=== PATIENT | male | born 1965 | race Two or more races ===

== ENCOUNTER 2024-05-24 08:33 | Inpatient (IN) | payer OTHER ==
[~2024-05-24] VITALS: Ht 175.3 cm; Wt 82.9 kg
[2024-05-24 09:06] LABS: Potassium 3.9 mmol/L (3.5-5.1); Sodium 140 mmol/L (136-145)
--- NOTE | 2024-05-24 09:06 | ED.PDOC ---
History of Present Illness HPI Comments 58M presents to the ER w/ no prior Hx associated to the c/c of ABD pain. Pt reports on having LLQ pain which radiates to the back and is associated w/ N/v for the past 5 days. Pt notes that he had a normal Bowel movement today. SHx of left ankle Sx. Social Hx of Occasional alcohol use, but denies tobacco and substance use. Denies chills, fever, /D, SOB, CP or no other associated symptom's, modifiers, recent injuries or sick contacts at this time. Chief Complaint: Abdominal Pain Time Seen by MD: 08:45 Primary Care Provider: NONE Reviewed Notes: Nurses Notes, Medications, Allergies Allergies: Coded Allergies: NO KNOWN ALLERGIES (Unverified , 05/24/24) Information Source: Patient Mode of Arrival: Ambulatory Severity: Moderate Timing: Days Duration: Since onset, Days Prehospital treatment: None Past Medical History PAST MEDICAL HISTORY: Denies Surgical History (Other): Left Ankle Sx Family History Family History: Reviewed,noncontributory to illness, Unknown Social History Smoker: Non-Smoker Alcohol: Occasionally Drugs: Denies Drug Use Lives In: Home Constitutional: denies: chills, diaphoresis, fatigue, fever, malaise, sweats, weakness, others EENTM: denies: blurred vision, double vision, ear bleeding, ear discharge, ear drainage, ear pain, ear ringing, eye pain, eye redness, hearing loss, mouth pain, mouth swelling, nasal discharge, nose bleeding, nose congestion, nose pain, photophobia, tearing, throat pain, throat swelling, voice changes, others Respiratory: denies: cough, hemoptysis, orthopnea, SOB at rest, shortness of breath, SOB with excertion, stridor, wheezing, others Cardiovascular: denies: chest pain, dizzy spells, diaphoresis, Dyspnea on exertion, edema, irregular heart beat, left arm pain, lightheadedness, palpitations, PND, syncope, others Gastrointestinal: reports: abdominal pain, nausea, vomiting; denies: abdomen distended, blood streaked bowels, constipated, diarrhea, dysphagia, difficulty swallowing, hematemesis, melena, poor appetite, poor fluid intake, rectal bleeding, rectal pain, others Genitourinary: denies: burning, dysuria, flank pain, frequency, hematuria, incontinence, penile discharge, penile sore, pain, testicle pain, testicle swelling, urgency, others Neurological: denies: dizziness, fainting, headache, left sided numbness, left sided weakness, numbness, paresthesia, pre-existing deficit, right sided numbness, right sided weakness, seizure, speech problems, tingling, tremors, weakness, others Musculoskeletal: denies: back pain, gout, joint pain, joint swelling, muscle pain, muscle stiffness, neck pain, others Integumetry: denies: bruises, change in color, change in hair/nails, dryness, laceration, lesions, lumps, rash, wounds, others Allergic/Immunocompromised: denies: Difficulty Healing, Frequent Infections, H mey, Itching, others Hematologic/Lymphatic: denies: anemia, blood clots, easy bleeding, easy bruising, swollen glands, others Endocrine: denies: excessive hunger, excessive sweating, excessive thirst, excessive urination, flushing, intolerance to cold, intolerance to heat, unexplained weight gain, unexplained weight loss, others Psychiatric: denies: anxiety, bipolar disorder, depression, hopeless, panic disorder, schizophrenia, sleepless, suicidal, others All Other Systems: Reviewed and Negative Physical Exam General Appearance: Moderate Distress, Normal HEENT: Normal ENT Inspection, Pharynx Normal, TMs Normal Neck: Full Range of Motion, Non-Tender, Normal, Normal Inspection Respiratory: Chest Non-Tender, Lungs Clear, No Accessory Muscle Use, No Respiratory Distress, Normal Breath Sounds Cardiovascular: No Edema, No JVD, No Murmur, No Gallop, Normal Peripheral Pulses, Regular Rate/Rhythm Breast Exam: Deferred Gastrointestinal: Distended, No Organomegaly, Non Tender, No Pulsatile Mass, Normal Bowel Sounds, Soft Genitalia: Deferred Pelvic: Deferred Rectal: Deferred Extremities: No calf tenderness, Normal capillary refill, Normal inspection, Normal range of motion, Non-tender, No pedal edema Musculoskeletal : Apperance: Normal Neurologic: Alert, financial foundations associate II-XII nml as Tested, No Motor Deficits, Normal Affect, Normal Mood, No Sensory Deficits Cerebellar Function: NOT DONE Reflexes: NOT DONE Skin: Dry, Normal Color, Warm Peripheral Pulses: 3+ Radial (R), 3+ Radial (L) Lymphatic: No Adenopathy Was a procedure done? Was a procedure done?: No Differential Dx Considerations may include: Colitis Electrolyte imbalance X-Ray, Labs, Meds, VS Vital Signs Date Time Temp Pulse Resp B/P (MAP) Pulse Ox O2 Delivery O2 Flow Rate FiO2 05/24/24 08:38 98.0 77 18 160/92 (114) 99 98.0 Lab Test 05/24/24 08:45 05/24/24 08:42 Range/Units White Blood Count 10.3 4.4-10.8 10^3/uL Red Blood Count 5.21 4.5-5.90 10^6/uL Hemoglobin 18.8 H 13.5-17.5 g/dL Hematocrit 53.0 41.0-53.0 % Mean Corpuscular Volume 101.7 H 80.0-100.0 fL Mean Corpuscular Hemoglobin 36.2 H 28.0-32.0 pg Mean Corpuscular Hemoglobin Concent 35.6 32.0-36.0 g/dL Red Cell Distribution Width 13.3 11.8-14.3 % Platelet Count 247 140-450 10^3/uL Mean Platelet Volume 7.2 6.9-10.8 fL Neutrophils (%) (Auto) 81.4 H 37.0-80.0 % Lymphocytes (%) (Auto) 11.4 10.0-50.0 % Monocytes (%) (Auto) 6.3 0.0-12.0 % Eosinophils (%) (Auto) 0.3 0.0-7.0 % Basophils (%) (Auto) 0.6 0.0-2.0 % Neutrophils # (Auto) 8.4 1.6-8.6 10 ^3/uL Lymphocytes # (Auto) 1.2 0.4-5.4 10 ^3/uL Monocytes # (Auto) 0.6 0-1.3 10 ^3/uL Eosinophils # (Auto) 0 0-0.8 10 ^3/uL Basophils # (Auto) 0.1 0-0.2 10 ^3/uL Nucleated Red Blood Cells 0.0 % Sodium Level 140 136-145 mmol/L Potassium Level 3.9 3.5-5.1 mmol/L Chloride Level 108 H 98-107 mmol/L Carbon Dioxide Level 26 20-31 mmol/L Anion Gap 6 5-15 Blood Urea Nitrogen 10 9-23 mg/dL Creatinine 1.26 0.700-1.30 mg/dL Glomerular Filtration Rate Calc 67 >90 mL/min BUN/Creatinine Ratio 7.9 L 10.0-20.0 Serum Glucose 137 H 74-106 mg/dL Calcium Level 10.0 8.7-10.4 mg/dL Urine Color Dark-brown Yellow Urine Clarity Ex.turbid Clear Urine pH 5.5 5.0-9.0 Urine Specific [place] 1.026 1.001-1.035 Urine Protein 2+ H Negative Urine Ketones Trace Negative Urine Blood 3+ H Negative /uL Urine Nitrite Negative Negative Urine Bilirubin Negative Negative Urine Urobilinogen Normal Negative mg/dL Urine Leukocyte Esterase 1+ Negative /uL Urine RBC 4921 0 - 3 /hpf Urine Microscopic WBC 2 0-3 /HPF Urine Squamous Epithelial Cells None seen <5 /hpf Urine Bacteria None seen None Seen /hpf Urine Mucus Few None Seen Urine Glucose Normal Normal mg/dL Patient alert. Complaining of abdominal pain. Vitals stable. Answering questions. Urinalysis shows UTI. Blood pointing to possible kidney stone. Hemoglobin elevated. Dehydration. Establish intravenous access. Was given fluids. Was given Rocephin. Was given Toradol. Reviewed his history. Explained to the patient. Continue cardiac monitoring. Time of 1ST Reevaluation: 09:15 Reevaluation 1ST: Unchanged Patient Education/Counseling: Diagnosis, Treatment, Prognosis Family Education/Counseling: No Family Present Departure 1 Departure Time of Disposition: 10:11 Impression: Primary Impression: Sepsis, unspecified organism Qualified Codes: A41.9 - Sepsis, unspecified organism Additional Impressions: Urinary tract infection Qualified Codes: N30.01 - Acute cystitis with hematuria Kidney stone Disposition: ADMITTED INPATIENT Admit to: Med Surg Condition: Guarded Critical Care Note Critical Care Time?: Yes (45 min-critical care time only) Critical care comment: Sepsis fluids pain medication Stability Stability form required: No Heart Score Heart Score: Heart Score Response (Comments) Value History N/A 0 EKG N/A 0 Age N/A 0 Risk Factors N/A 0 Troponin N/A 0 Total 0 I personally scribed for VICTORIA LANGE MD ([email or web address]) on 05/24/24 at 09:06. Electronically submitted by Percy Sparks ([email or web address]). VICTORIA LANGE MD May 24, 2024 09:06
[2024-05-24 09:07] LABS: Anion Gap 6 (5-15); Carbon Dioxide 26 mmol/L (20-31)
[2024-05-24 09:07] LABS: Urine Bacteria None Seen /hpf (None Seen)
[2024-05-24 09:12] LABS: BUN/Creatinine Ratio 7.9 (10.0-20.0); Blood Urea Nitrogen 10 mg/dL (9-23); Chloride 108 mmol/L (98-107); Glucose 137 mg/dL (74-106)
[2024-05-24 09:15] LABS: Basophils # (auto) 0.1 10 ^3/uL (0-0.2); Basophils % (auto) 0.6 % (0.0-2.0); Eosinophils # (auto) 0 10 ^3/uL (0-0.8); Eosinophils % (auto) 0.3 % (0.0-7.0); Hemoglobin 18.8 g/dL (13.5-17.5); Lymphocytes # (auto) 1.2 10 ^3/uL (0.4-5.4); Lymphocytes % (auto) 11.4 % (10.0-50.0); Mean Corpuscular Hemoglobin 36.2 pg (28.0-32.0); Mean Corpuscular Hgb Conc. 35.6 g/dL (32.0-36.0); Mean Corpuscular Volume 101.7 fL (80.0-100.0); Monocytes # (auto) 0.6 10 ^3/uL (0-1.3); Monocytes % (auto) 6.3 % (0.0-12.0); Neutrophils # (auto) 8.4 10 ^3/uL (1.6-8.6); Neutrophils % (auto) 81.4 % (37.0-80.0); Platelet Count (auto) 247 10^3/uL (140-450); Red Blood Cells 5.21 10^6/uL (4.5-5.90); Red Cell Distribution Width 13.3 % (11.8-14.3); White Blood Cell 10.3 10^3/uL (4.4-10.8)
[2024-05-24 09:20] LABS: Urine Blood 3+ /uL (Negative); Urine Clarity Ex.Turbid (Clear); Urine Color Dark-Brown (Yellow); Urine Mucus FEW (None Seen); Urine Protein, UAD 2+ (Negative); Urine Specific Gravity 1.026 (1.001-1.035); Urine Squamous Epithelial Cell None Seen /hpf (<5); Urine Urobilinogen Normal (Negative); Urine WBC 2 /HPF (0-3); Urine pH 5.5 (5.0-9.0)
[2024-05-24] MEDS ORDERED: SODIUM CHLORIDE 0.9% 1,000 ML IV ONE (10:15)
--- NOTE | 2024-05-24 10:42 | DVH ---
Exam: CT CT AB PEL WO CON-NO ORAL OR IV History: stone Comparison Study: None Technique: Multidetector spiral CT of the abdomen and pelvis was performed from lung bases to pubic symphysis. Imaging was performed without IV contrast. Axial, coronal and sagittal multiplanar reform ats were obtained from the axial data set by the technologist. Radiation dose : Abdomen/Pelvis: CTDIvol 8 mGy, DLP 539 mGy*cm. Findings: Evaluation of solid organs is limited due to lack of intravenous contrast use. Lung Bases: No acute or significant lung base finding. Normal heart size. No pleural or pericardial effusion. Liver: The liver is normal in size. No focal lesions. Gallbladder and biliary Tree: Unremarkable Spleen: Unremarkable Pancreas: The pancreas is grossly normal in appearance. Adrenal Glands: Unremarkable Kidneys: Mild left hydronephrosis and hydroureter with an obstructing calculus in the proximal left u reter measuring up to 3 mm. Left lower pole renal calculus measuring up to 4 mm. Distal right uretera l calculus measuring up to 5 mm associated with mild hydroureter. No significant right hydronephrosis . Bladder: Grossly unremarkable for degree of distention. Bowel: The stomach is grossly normal in appearance. Small bowel and colon are normal in caliber and d istribution. Normal appendix is visualized in the right lower quadrant without findings of appendicit is. Ascites: Absent Lymphadenopathy: No mesenteric, retroperitoneal or periportal lymphadenopathy. Abdominal wall and Mesentery: Unremarkable. Vasculature: The visualized abdominal aorta is normal in size and caliber. Evaluation of abdominal a nd pelvic vessels is limited due to lack of intravenous contrast. Pelvic Organs: Unremarkable Musculoskeletal: No aggressive focal bony lesions, acute fractures or dislocation. IMPRESSION: 1. Minimally obstructing distal right ureteral calculus measuring up to 5 mm. Obstructing proximal le ft ureteral calculus measuring up to 3 mm associated with mild left hydronephrosis and hydroureter. L eft lower pole renal calculus measuring up to 4 mm. Urology evaluation is recommended. Radiation optimization: All CT scans at this facility use at least one of these dose optimization maritza hniques: Automated exposure control mA and/or kV adjustment per patient size (includes targeted exams where dose is matched to clinical indication) or iterative reconstruction. HS:Y
[2024-05-24] MEDS: cefTRIAXone 1GM/50ML D5W 50 ML IV ONE (10:58)
[2024-05-24] MEDS: KETOROLAC TROMETH 30 MG/ML 1ML VIAL IV ONE (10:58)
[2024-05-24] MEDS ORDERED: DOCUSATE SOD 100 MG CAP PO PRN (12:00)
[2024-05-24] MEDS ORDERED: ACETAMINOPHEN 325 MG TAB PO PRN (12:00)
--- NOTE | 2024-05-24 12:09 | DVHHP2 ---
History of Present Illness Reason for Visit: Abdominal pain History of Present Illness Sergo Harden is a 58-year-old male with no significant past medical history, but also states he has not been to see a primary care provider in years. Patient came in with complaints of abdominal pain. Patient states he started with LLQ abdominal pain on Wednesday. The pain seemed to improve on Wednesday, but worsened this morning. He states this morning the pain was severe, radiating to his left flank with associated nausea and vomiting. Past Surgical History: Other (Left ankle) Smoke: 1 pack per day ALCOHOL: occassional Drugs: None Lives: with Family Domestic Violence: Neg Review of Systems Constitutional: No: Fever, Chills, Sweats, Weakness, Malaise, Other Eyes: No: Pain, Vision change, Conjunctivae inflammation, Eyelid inflammation, Other, Redness ENT: No: Ear pain, Ear discharge, Nose pain, Nose discharge, Nose congestion, Mouth pain, Mouth swelling, Throat pain, Throat swelling, Other Respiratory: No: Cough, Dry, Shortness of breath, SOB with excertion, Wheezing, Hemoptysis, Pleuritic Pain, Sputum, Wheezing, Other Cardiovascular: No: Chest Pain, Palpitations, Orthopnea, Paroxysmal Noc. Dyspnea, Edema, Lt Headedness, Other Gastrointestinal: Nausea, Vomiting, Abdominal Pain; No: Diarrhea, Constipation, Melena, Hematochezia, Other Genitourinary: Dysuria, Frequency; No Incontinence; Hematuria, Retention; No Other Musculoskeletal: No: other, neck pain, shoulder pain, arm pain, back pain, hand pain, leg pain, foot pain Skin: No: Rash, Lesions, Jaundice, Bruising, Other Neurological: No: Weakness, Numbness, Incoordination, Change in speech, Confu justen, Seizures, Other Allergies: Coded Allergies: NO KNOWN ALLERGIES (Unverified , 05/24/24) Exam Vital Signs Vital Signs Date Time Temp Pulse Resp B/P (MAP) Pulse Ox O2 Delivery O2 Flow Rate FiO2 05/24/24 08:38 98.0 77 18 160/92 (114) 99 98.0 General Appearance: Alert, Oriented X3, Cooperative, moderate distress HEENT: Atraumatic, PERRLA, Mucous membr. moist/pink Respiratory: Clear to auscultation, Normal air movement Cardiovascular: Regular rate, Normal S1, Normal S2 Abdominal: Normal bowel sounds, Soft, Other (LLQ pain, radiating to left flank) Extremities: No clubbing, No cyanosis, No edema, Normal pulses, No tenderness/swelling Skin: No rashes, No breakdown, No significant lesion Neuro: Normal gait, Normal speech, Strength at 5/5 X4 ext, Normal tone Psych/Mental Status: Mental status NL, Mood NL Labs/Xrays Labs Test 05/24/24 08:45 05/24/24 08:42 Range/Units White Blood Count 10.3 4.4-10.8 10^3/uL Red Blood Count 5.21 4.5-5.90 10^6/uL Hemoglobin 18.8 H 13.5-17.5 g/dL Hematocrit 53.0 41.0-53.0 % Mean Corpuscular Volume 101.7 H 80.0-100.0 fL Mean Corpuscular Hemoglobin 36.2 H 28.0-32.0 pg Mean Corpuscular Hemoglobin Concent 35.6 32.0-36.0 g/dL Red Cell Distribution Width 13.3 11.8-14.3 % Platelet Count 247 140-450 10^3/uL Mean Platelet Volume 7.2 6.9-10.8 fL Neutrophils (%) (Auto) 81.4 H 37.0-80.0 % Lymphocytes (%) (Auto) 11.4 10.0-50.0 % Monocytes (%) (Auto) 6.3 0.0-12.0 % Eosinophils (%) (Auto) 0.3 0.0-7.0 % Basophils (%) (Auto) 0.6 0.0-2.0 % Neutrophils # (Auto) 8.4 1.6-8.6 10 ^3/uL Lymphocytes # (Auto) 1.2 0.4-5.4 10 ^3/uL Monocytes # (Auto) 0.6 0-1.3 10 ^3/uL Eosinophils # (Auto) 0 0-0.8 10 ^3/uL Basophils # (Auto) 0.1 0-0.2 10 ^3/uL Nucleated Red Blood Cells 0.0 % Sodium Level 140 136-145 mmol/L Potassium Level 3.9 3.5-5.1 mmol/L Chloride Level 108 H 98-107 mmol/L Carbon Dioxide Level 26 20-31 mmol/L Anion Gap 6 5-15 Blood Urea Nitrogen 10 9-23 mg/dL Creatinine 1.26 0.700-1.30 mg/dL Glomerular Filtration Rate Calc 67 >90 mL/min BUN/Creatinine Ratio 7.9 L 10.0-20.0 Serum Glucose 137 H 74-106 mg/dL Calcium Level 10.0 8.7-10.4 mg/dL Urine Color Dark-brown Yellow Urine Clarity Ex.turbid Clear Urine pH 5.5 5.0-9.0 Urine Specific [place] 1.026 1.001-1.035 Urine Protein 2+ H Negative Urine Ketones Trace Negative Urine Blood 3+ H Negative /uL Urine Nitrite Negative Negative Urine Bilirubin Negative Negative Urine Urobilinogen Normal Negative mg/dL Urine Leukocyte Esterase 1+ Negative /uL Urine RBC 4921 0 - 3 /hpf Urine Microscopic WBC 2 0-3 /HPF Urine Squamous Epithelial Cells None seen <5 /hpf Urine Bacteria None seen None Seen /hpf Urine Mucus Few None Seen Urine Glucose Normal Normal mg/dL Exam: CT CT AB PEL WO CON-NO ORAL OR IV Findings: Evaluation of solid organs is limited due to lack of intravenous contrast use. Lung Bases: No acute or significant lung base finding. Normal heart size. No pleural or pericardial effusion. Liver: The liver is normal in size. No focal lesions. Gallbladder and biliary Tree: Unremarkable Spleen: Unremarkable Pancreas: The pancreas is grossly normal in appearance. Adrenal Glands: Unremarkable Kidneys: Mild left hydronephrosis and hydroureter with an obstructing calculus in the proximal left ureter measuring up to 3 mm. Left lower pole renal calculus measuring up to 4 mm. Distal right ureteral calculus measuring up to 5 mm associated with mild hydroureter. No significant right hydronephrosis. Bladder: Grossly unremarkable for degree of distention. Bowel: The stomach is grossly normal in appearance. Small bowel and colon are normal in caliber and distribution. Normal appendix is visualized in the right lower quadrant without findings of appendicitis. Ascites: Absent Lymphadenopathy: No mesenteric, retroperitoneal or periportal lymphadenopathy. Abdominal wall and Mesentery: Unremarkable. Vasculature: The visualized abdominal aorta is normal in size and caliber. Evaluation of abdominal and pelvic vessels is limited due to lack of intravenous contrast. Pelvic Organs: Unremarkable Musculoskeletal: No aggressive focal bony lesions, acute fractures or dislocation. IMPRESSION: 1. Minimally obstructing distal right ureteral calculus measuring up to 5 mm. Obstructing proximal left ureteral calculus measuring up to 3 mm associated with mild left hydronephrosis and hydroureter. Left lower pole renal calculus measuring up to 4 mm. Urology evaluation is recommended. Assessment/Plan Assessment/Plan Assessment: Hydroureteronephrosis, Hydronephrosis, UTI, Hyperglycemia, Plan: Admit to Med-Surg, Urology consult, IV hydration, Flomax, IV antibiotics, A1c, Plan discussed with: Patient My Orders Orders - MARCO A PEDRAZA Procedure Category Date Status Time Admit ADMIT 05/24/24 Verified 11:57 Code Status CODE 05/24/24 Verified 11:57 0.9% Ns 1000 Ml PHA 05/24/24 Verified 12:00 Hydrocodone-Acet PHA 05/24/24 Verified 5/325mg Tab ([place] 12:00 Ondansetron Hcl PHA 05/24/24 Verified (Zofran) 12:00 Docusate Sodium PHA 05/24/24 Verified Capsule ([place] 12:00 Complete Blood Count LAB 05/25/24 Verified 04:00 Comprehensive LAB 05/25/24 Verified Metabolic Panel 04:00 Condition: Serious MAX 05/24/24 Verified 11:57 Acetaminophen Tablet PHA 05/24/24 Verified (Tylenol Tablet) 12:00 Morphine Sulfate PHA 05/24/24 Verified Injection 12:00 Tamsulosin PHA 05/24/24 Verified Hydrochloride (Flomax) 12:00 Tamsulosin PHA 05/25/24 Verified Hydrochloride (Flomax) 18:00 NS PHA 05/24/24 Verified 12:00 Ceftriaxone Ivpb PHA 05/25/24 Verified Rocephin 09:00 Date of Service: May 24, 2024 Billing Provider: MARCO A PEDRAZA Common Visit Codes: [id number] INP/OBS CARE (MOD) MARCO A PEDRAZA May 24, 2024 12:09
[2024-05-24] MEDS: SODIUM CHLORIDE 0.9% 1,000 ML IV ONE ×2 (12:11→14:02)
[2024-05-24 12:12] VITALS: PULSE 84; RESP 14; O2SAT 96
--- NOTE | 2024-05-24 12:22 | DVHINCON2 ---
Date of service: May 24, 2024 Referring Physician Hospitalist Reason for Consultation Urolithiasis Mild hydronephrosis Flank pains, bilateral History of Present Illness 58M presents to the ER w/ no prior Hx associated to the c/c of ABD pain. Pt reports on having LLQ pain which radiates to the back and is associated w/ N/v for the past 5 days. Pt notes that he had a normal Bowel movement today. SHx of left ankle Sx. Social Hx of Occasional alcohol use, but denies tobacco and substance use. Denies chills, fever, /D, SOB, CP or no other associated symptom's, modifiers, recent injuries or sick contacts at this time. Chief Complaint: Abdominal Pain Primary Care Provider: NONE Reviewed Notes: Nurses Notes, Medications, Allergies Allergies: Coded Allergies: NO KNOWN ALLERGIES (Unverified , 05/24/24) Information Source: Patient Mode of Arrival: Ambulatory Severity: Moderate Timing: Days Duration: Since onset, Days Prehospital treatment: None Past Medical History Denies Past Surgical History Left Ankle Sx Allergies: Coded Allergies: NO KNOWN ALLERGIES (Unverified , 05/24/24) Current Medications Current Medications Medications (Trade) Dose Ordered Sig/Vahid Route PRN Reason Start Time Stop Time Status Last Admin Sodium Chloride 1,000 ml @ 100 mls/hr Q10H IV 05/24/24 12:00 Acetaminophen/ Hydrocodone Bitart (Reserve 5/325MG Tab) 1 tab Q4HP PRN PO MODERATE PAIN (4-6 PAIN SCALE) 05/24/24 12:00 Ondansetron HCl (Zofran) 4 mg Q4HP PRN IV NAUSEA / VOMITING 05/24/24 12:00 Docusate Sodium (Colace Capsule) 100 mg BIDPRN PRN PO FOR CONSTIPATION 05/24/24 12:00 Acetaminophen (Tylenol Tablet) 650 mg Q6HP PRN PO PAIN SCALE 1-3 OR TEMP>100.4 05/24/24 12:00 Morphine Sulfate 2 mg Q4HPRN PRN IV SEVERE PAIN (7-10 PAIN SCALE) 05/24/24 12:00 Tamsulosin HCl (Flomax) 0.4 mg QPM PO 05/25/24 18:00 Ceftriaxone Sodium 50 ml @ 100 mls/hr DAILY@09 IV 05/25/24 09:00 Review of Systems Constitutional: denies: chills, diaphoresis, fatigue, fever, malaise, sweats, weakness, others EENTM: denies: blurred vision, double vision, ear bleeding, ear discharge, ear drainage, ear pain, ear ringing, eye pain, eye redness, hearing loss, mouth pain, mouth swelling, nasal discharge, nose bleeding, nose congestion, nose pain, photophobia, tearing, throat pain, throat swelling, voice changes, others Respiratory: denies: cough, hemoptysis, orthopnea, SOB at rest, shortness of breath, SOB with excertion, stridor, wheezing, others Cardiovascular: denies: chest pain, dizzy spells, diaphoresis, Dyspnea on exertion, edema, irregular heart beat, left arm pain, lightheadedness, palpitations, PND, syncope, others Gastrointestinal: reports: abdominal pain, nausea, vomiting; denies: abdomen distended, blood streaked bowels, constipated, diarrhea, dysphagia, difficulty swallowing, hematemesis, melena, poor appetite, poor fluid intake, rectal bleeding, rectal pain, others Genitourinary: denies: burning, dysuria, flank pain, frequency, hematuria, incontinence, penile discharge, penile sore, pain, testicle pain, testicle swelling, urgency, others Neurological: denies: dizziness, fainting, headache, left sided numbness, left sided weakness, numbness, paresthesia, pre-existing deficit, right sided numbness, right sided weakness, seizure, speech problems, tingling, tremors, weakness, others Musculoskeletal: denies: back pain, gout, joint pain, joint swelling, muscle pain, muscle stiffness, neck pain, others Integumetry: denies: bruises, change in color, change in hair/nails, dryness, laceration, lesions, lumps, rash, wounds, others Allergic/Immunocompromised: denies: Difficulty Healing, Frequent Infections, Hives, Itching, others Hematologic/Lymphatic: denies: anemia, blood clots, easy bleeding, easy bru ising, swollen glands, others Endocrine: denies: excessive hunger, excessive sweating, excessive thirst, e xcessive urination, flushing, intolerance to cold, intolerance to heat, unexplained weight gain, unexplained weight loss, others Psychiatric: denies: anxiety, bipolar disorder, depression, hopeless, panic disorder, schizophrenia, sleepless, suicidal, others All Other Systems: Reviewed and Negative Vital Signs Vital Signs Date Time Temp Pulse Resp B/P (MAP) Pulse Ox O2 Delivery O2 Flow Rate FiO2 05/24/24 12:12 84 14 96 Room Air* 0 21 05/24/24 08:38 98.0 160/92 (114) 98.0 Physical Exam General Appearance: Moderate Distress, Normal HEENT: Normal ENT Inspection, Pharynx Normal, TMs Normal Neck: Full Range of Motion, Non-Tender, Normal, Normal Inspection Respiratory: Chest Non-Tender, Lungs Clear, No Accessory Muscle Use, No Respiratory Distress, Normal Breath Sounds Cardiovascular: No Edema, No JVD, No Murmur, No Gallop, Normal Peripheral Pulses, Regular Rate/Rhythm Breast Exam: Deferred Gastrointestinal: Distended, No Organomegaly, Non Tender, No Pulsatile Mass, Normal Bowel Sounds, Soft Genitalia: Normal Extremities: No calf tenderness, Normal capillary refill, Normal inspection, Normal range of motion, Non-tender, No pedal edema Musculoskeletal : Apperance: Normal Neurologic: Alert, medical record librarians teacher II-XII nml as Tested, No Motor Deficits, Normal Affect, Normal Mood, No Sensory Deficits Cerebellar Function: NOT DONE Reflexes: NOT DONE Skin: Dry, Normal Color, Warm Peripheral Pulses: 3+ Radial (R), 3+ Radial (L) Lymphatic: No Adenopathy Labs/Diagnostic Data Labs Test 05/24/24 08:45 05/24/24 08:42 Range/Units White Blood Count 10.3 4.4-10.8 10^3/uL Red Blood Count 5.21 4.5-5.90 10^6/uL Hemoglobin 18.8 H 13.5-17.5 g/dL Hematocrit 53.0 41.0-53.0 % Mean Corpuscular Volume 101.7 H 80.0-100.0 fL Mean Corpuscular Hemoglobin 36.2 H 28.0-32.0 pg Mean Corpuscular Hemoglobin Concent 35.6 32.0-36.0 g/dL Red Cell Distribution Width 13.3 11.8-14.3 % Platelet Count 247 140-450 10^3/uL Mean Platelet Volume 7.2 6.9-10.8 fL Neutrophils (%) (Auto) 81.4 H 37.0-80.0 % Lymphocytes (%) (Auto) 11.4 10.0-50.0 % Monocytes (%) (Auto) 6.3 0.0-12.0 % Eosinophils (%) (Auto) 0.3 0.0-7.0 % Basophils (%) (Auto) 0.6 0.0-2.0 % Neutrophils # (Auto) 8.4 1.6-8.6 10 ^3/uL Lymphocytes # (Auto) 1.2 0.4-5.4 10 ^3/uL Monocytes # (Auto) 0.6 0-1.3 10 ^3/uL Eosinophils # (Auto) 0 0-0.8 10 ^3/uL Basophils # (Auto) 0.1 0-0.2 10 ^3/uL Nucleated Red Blood Cells 0.0 % Sodium Level 140 136-145 mmol/L Potassium Level 3.9 3.5-5.1 mmol/L Chloride Level 108 H 98-107 mmol/L Carbon Dioxide Level 26 20-31 mmol/L Anion Gap 6 5-15 Blood Urea Nitrogen 10 9-23 mg/dL Creatinine 1.26 0.700-1.30 mg/dL Glomerular Filtration Rate Calc 67 >90 mL/min BUN/Creatinine Ratio 7.9 L 10.0-20.0 Serum Glucose 137 H 74-106 mg/dL Calcium Level 10.0 8.7-10.4 mg/dL Urine Color Dark-brown Yellow Urine Clarity Ex.turbid Clear Urine pH 5.5 5.0-9.0 Urine Specific [place] 1.026 1.001-1.035 Urine Protein 2+ H Negative Urine Ketones Trace Negative Urine Blood 3+ H Negative /uL Urine Nitrite Negative Negative Urine Bilirubin Negative Negative Urine Urobilinogen Normal Negative mg/dL Urine Leukocyte Esterase 1+ Negative /uL Urine RBC 4921 0 - 3 /hpf Urine Microscopic WBC 2 0-3 /HPF Urine Squamous Epithelial Cells None seen <5 /hpf Urine Bacteria None seen None Seen /hpf Urine Mucus Few None Seen Urine Glucose Normal Normal mg/dL PATIENT: KENY BAUTISTA ACCT: [id number] UNIT: [id number] : 1965 LOC: ER ROOM / BED: / AGE / SEX: 58 / M ADM STATUS: REG ER SERVICE 1012 ORDERING PHYSICIAN: VICTORIA LANGE MD PROCEDURE(s): ABPL - CT AB PEL WO CON-NO ORAL OR IV REASON: stone ORDER NUMBER(s): [id number], ACCESSION NUMBER(s): [id number] Exam: CT CT AB PEL WO CON-NO ORAL OR IV History: stone Comparison Study: None Technique: Multidetector spiral CT of the abdomen and pelvis was performed from lung bases to pubic symphysis. Imaging was performed without IV contrast. Axial, coronal and sagittal multiplanar reformats were obtained from the axial data set by the technologist. Radiation dose : Abdomen/Pelvis: CTDIvol 8 mGy, DLP 539 mGy*cm. Findings: Evaluation of solid organs is limited due to lack of intravenous contrast use. Lung Bases: No acute or significant lung base finding. Normal heart size. No pleural or pericardial effusion. Liver: The liver is normal in size. No focal lesions. Gallbladder and biliary Tree: Unremarkable Spleen: Unremarkable Pancreas: The pancreas is grossly normal in appearance. Adrenal Glands: Unremarkable Kidneys: Mild left hydronephrosis and hydroureter with an obstructing calculus in the proximal left ureter measuring up to 3 mm. Left lower pole renal calculus measuring up to 4 mm. Distal right ureteral calculus measuring up to 5 mm a ssociated with mild hydroureter. No significant right hydronephrosis. Bladder: Grossly unremarkable for degree of distention. Bowel: The stomach is grossly normal in appearance. Small bowel and colon are normal in caliber and distribution. Normal appendix is visualized in the right lower quadrant without findings of appendicitis. Ascites: Absent Lymphadenopathy: No mesenteric, retroperitoneal or periportal lymphadenopathy. Abdominal wall and Mesentery: Unremarkable. Vasculature: The visualized abdominal aorta is normal in size and caliber. Evaluation of abdominal and pelvic vessels is limited due to lack of intravenous contrast. Pelvic Organs: Unremarkable Musculoskeletal: No aggressive focal bony lesions, acute fractures or dislocation. IMPRESSION: 1. Minimally obstructing distal right ureteral calculus measuring up to 5 mm. Obstructing proximal left ureteral calculus measuring up to 3 mm associated with mild left hydronephrosis and hydroureter. Left lower pole renal calculus measuring up to 4 mm. Urology evaluation is recommended. Radiation optimization: All CT scans at this facility use at least one of these dose optimization techniques: Automated exposure control mA and/or kV adjustment per patient size (includes targeted exams where dose is matched to clinical indication) or iterative reconstruction. HS:Y ATED BY: PEDRO MACHUCA MD DICTATED DATE/TIME: 05/24/24 103 SIGNED BY: PEDRO MACHUCA MD SIGNED DATE/TIME: 05/24/24 103 CC: Assessment Mild left hydronephrosis Left nephrolithiasis right ureteral calculus, 5 mm right flank pain Plan/Recommendation Expulsive measures Pain control and outpatient management of left renal lithiasis with ESWL Plan discussed with: Patient, Other KARISSA CRUZ MD May 24, 2024 12:22
[2024-05-24] MEDS: TAMSULOSIN HYDROCHLORIDE 0.4 MG CAP PO ONE (13:33)
[2024-05-24] MEDS: ONDANSETRON HCL 4 MG/2 ML VIAL IV PRN (14:03)
[2024-05-24 14:24] VITALS: BP 137/77; PULSE 70; RESP 20; TEMP 98.3; O2SAT 99
[2024-05-24] MEDS: SODIUM CHLORIDE 0.9% 1,000 ML IV SCH (15:11)
[2024-05-24] MEDS: MANNITOL FTV 25% 12.5 GM/50 ML 50 ML IV ONE (15:11)
[2024-05-24] MEDS: HYDROcodone-ACET 5/325MG TAB PO PRN (15:33)
[2024-05-24] MEDS: MORPHINE SULFATE INJ 2 MG/ml SYRG IV PRN (17:50)
[2024-05-24 21:00] VITALS: BP 156/75; PULSE 96; RESP 17; TEMP 97.7; O2SAT 98
[2024-05-25] VITALS (8 sets, daily range): BP systolic 139–161; BP diastolic 80–101; PULSE 80–114; RESP 16–20; TEMP 97.4–98.5; O2SAT 94–98
[2024-05-25 06:37] LABS: Basophils # (auto) 0 10 ^3/uL (0-0.2); Basophils % (auto) 0.2 % (0.0-2.0); Eosinophils # (auto) 0 10 ^3/uL (0-0.8); Eosinophils % (auto) 0.3 % (0.0-7.0); Hematocrit 46.1 % (41.0-53.0); Hemoglobin 15.8 g/dL (13.5-17.5); Lymphocytes # (auto) 1.4 10 ^3/uL (0.4-5.4); Lymphocytes % (auto) 16.5 % (10.0-50.0); Mean Corpuscular Hgb Conc. 34.3 g/dL (32.0-36.0); Mean Corpuscular Volume 102.1 fL (80.0-100.0); Monocytes # (auto) 0.9 10 ^3/uL (0-1.3); Monocytes % (auto) 11.1 % (0.0-12.0); Neutrophils # (auto) 5.9 10 ^3/uL (1.6-8.6); Neutrophils % (auto) 71.9 % (37.0-80.0); Platelet Count (auto) 188 10^3/uL (140-450); Red Blood Cells 4.51 10^6/uL (4.5-5.90); Red Cell Distribution Width 12.8 % (11.8-14.3); White Blood Cell 8.3 10^3/uL (4.4-10.8)
[2024-05-25 07:01] LABS: Alanine Aminotransferase 29 U/L (7-40); Albumin 3.8 g/dL (3.2-4.8); Alkaline Phosphatase 51 U/L (46-116); Anion Gap 10 (5-15); Aspartate Aminotransferase 21 U/L (13-40); BUN/Creatinine Ratio 6.4 (10.0-20.0); Bilirubin, Total 0.8 mg/dL (0.2-1.0); Blood Urea Nitrogen 16 mg/dL (9-23); Calcium 9.4 mg/dL (8.7-10.4); Carbon Dioxide 22 mmol/L (20-31); Glucose 93 mg/dL (74-106); Potassium 3.7 mmol/L (3.5-5.1); Sodium 141 mmol/L (136-145); Total Protein 5.8 g/dL (5.7-8.2)
[2024-05-25 07:05] LABS: Chloride 109 mmol/L (98-107)
--- NOTE | 2024-05-25 08:54 | DVH ---
US KIDNEY HISTORY: Hydronephrosis COMPARISON: None TECHNIQUE: Transverse and longitudinal grayscale and color Doppler images were obtained of the kidney s and bladder. FINDINGS: Right kidney: Size: 9.6 cm Cortical thickness: Normal Echogenicity: Increased Stones: Yes Masses: None Hydronephrosis: Yes Ureters: Not well visualized. Other: None Left kidney: Size: 10.9 cm Cortical thickness: Normal Echogenicity: Increased Stones: Yes Masses: None Hydronephrosis: Yes Ureters: Not well visualized. Other: None Bladder: Bladder jets not seen. Other: None. IMPRESSION: Small bilateral nonobstructive kidney stones 5mm in the kidneys. Mild bilateral hydronephrosis seen. Mild increased kidney echogenicities could be seen with medical renal disease.
[2024-05-25] MEDS: cefTRIAXone 1GM/50ML D5W 50 ML IV SCH (09:53)
--- NOTE | 2024-05-25 10:19 | DVHPN2 ---
Progress Note - Dictate Date Seen: May 25, 2024 Has the PT tested + for MRSA If YES, has PT been informed?: No Medical Necessity Reason Pt with a Central, PICC or Fol: No Medical Necessity Reason Bilateral ureteral calculi(5 mm right distal stone and 3 mm left proximal ureteral stone) Left renal calculus Subjective Patient had an ultrasound of the kidneys done earlier this morning showing lack of bilateral ureteral jetting. His creatinine also elevated. Patient states he is feeling much better on the right side and he is able to urinate. He even feels like he may have passed the stone on the right side. vital signs Vital Sign Date Time Temp Pulse Resp B/P (MAP) Pulse Ox O2 Delivery O2 Flow Rate FiO2 05/25/24 05:00 98.5 112 18 139/85 (103) 94 98.5 05/24/24 23:45 Room Air* 0 21 Total Intake and Output 05/24/24 05/24/24 05/25/24 15:00 23:00 07:00 Intake Total 50 ml 720 ml 0 ml Balance 50 ml 720 ml 0 ml medications Current Medications Medications Dose Ordered Sig/Vahid Route Start Time Stop Time Status Last Admin Dose Admin Sodium Chloride 1,000 ml @ 100 mls/hr Q10H IV 05/24/24 12:00 05/24/24 21:32 100 MLS/HR Acetaminophen/ Hydrocodone Bitart 1 tab Q4HP PRN PO 05/24/24 12:00 05/24/24 15:33 1 TAB Ondansetron HCl 4 mg Q4HP PRN IV 05/24/24 12:00 05/24/24 21:27 4 MG Docusate Sodium 100 mg BIDPRN PRN PO 05/24/24 12:00 Acetaminophen 650 mg Q6HP PRN PO 05/24/24 12:00 Morphine Sulfate 2 mg Q4HPRN PRN IV 05/24/24 12:00 05/24/24 22:19 2 MG Tamsulosin HCl 0.4 mg QPM PO 05/25/24 18:00 Ceftriaxone Sodium 50 ml @ 100 mls/hr DAILY@09 IV 05/25/24 09:00 objective PATIENT: KENY BAUTISTA ACCT: [id number] UNIT: [id number] : 1965 LOC: [facility] ROOM / BED: [facility] / A AGE / SEX: 58 / M ADM STATUS: ADM IN SERVICE 0745 ORDERING PHYSICIAN: KARISSA CRUZ MD PROCEDURE(s): KIDUS - KIDNEY REASON: Hydronephrosis ORDER NUMBER(s): [id number], ACCESSION NUMBER(s): [id number] US KIDNEY HISTORY: Hydronephrosis COMPARISON: None TECHNIQUE: Transverse and longitudinal grayscale and color Doppler images were obtained of the kidneys and bladder. FINDINGS: Right kidney: Size: 9.6 cm Cortical thickness: Normal Echogenicity: Increased Stones: Yes Masses: None Hydronephrosis: Yes Ureters: Not well visualized. Other: None Left kidney: Size: 10.9 cm Cortical thickness: Normal Echogenicity: Increased Stones: Yes Masses: None Hydronephrosis: Yes Ureters: Not well visualized. Other: None Bladder: Bladder jets not seen. Other: None. IMPRESSION: Small bilateral nonobstructive kidney stones 5mm in the kidneys. Mild bilateral hydronephrosis seen. Mild increased kidney echogenicities could be seen with medical renal disease. ATED BY: MANAN HERRERA MD DICTATED DATE/TIME: 05/25/2452 SIGNED BY: MANAN HERRERA MD SIGNED DATE/TIME: 05/25/2452 CC: laboratory and microbiology Laboratory Tests 05/25/24 05:10 Test 05/25/24 05:10 Range/Units Serum Glucose 93 74-106 mg/dL Problem List Rising serum creatinine Bilateral ureteral calculi Left renal calculus Mild bilateral hydronephrosis Assessment/Plan Continue with the expulsive measures Another dose of mannitol administration ordered Check BNP and repeat renal ultrasound in a.m. tomorrow. If necessary we will proceed with right ureteroscope with laser lithotripsy and bilateral stent placements on Wednesday or Wednesday Plan discussed with: Patient KARISSA CRUZ MD May 25, 2024 10:19
[2024-05-25] MEDS: MANNITOL FTV 25% 12.5 GM/50 ML 50 ML IV ONE (11:26)
--- NOTE | 2024-05-25 12:45 | DVHPN2 ---
Subjective The patient is seen and examined at bedside. Flank pain. No fever or chill. Reviewed: Care Plan, H&P, Labs, Medications, Previous Orders, Radiology Changes from previous H/P or p: No Changes Eyes: No Pain, No Vision change, No Conjunctivae inflammation, No Eyelid inflammation, No Other, No Redness ENT: No Ear pain, No Ear discharge, No Nose pain, No Nose discharge, No Nose congestion, No Mouth pain, No Mouth swelling, No Throat pain, No Throat swelling, No Other Cardiovascular: No Chest Pain, No Palpitations, No Orthopnea, No Paroxysmal Noc. Dyspnea, No Edema, No Lt Headedness, No Other Respiratory: No Cough, No Dry, No Shortness of breath, No SOB with excertion, No Wheezing, No Hemoptysis, No Pleuritic Pain, No Sputum, No Other Gastrointestinal: Nausea, Vomiting, Abdominal Pain; No Diarrhea, No Constipation, No Melena, No Hematochezia, No Other Genitourinary: Dysuria, Frequency; No Incontinence; Hematuria, Retention; No Other Musculoskeletal: No other, No neck pain, No shoulder pain, No arm pain, No back pain, No hand pain, No leg pain, No foot pain Skin: No Rash, No Lesions, No Jaundice, No Bruising, No Other Objective Vitals Vital Signs Date Time Temp Pulse Resp B/P (MAP) Pulse Ox O2 Delivery O2 Flow Rate FiO2 05/25/24 08:45 97.7 88 17 151/92 (111) 98 97.7 05/24/24 23:45 Room Air* 0 21 Intake/Output Intake and Output 05/25/24 07:00 Intake Total 770 ml Balance 770 ml Intake Oral 720 ml IV Total 50 ml # Voids 1 General Appearance: Alert, Oriented X3, Cooperative, No acute distress HEENT: Atraumatic, PERRLA, EOMI, Mucous membr. moist/pink Neck: Supple Lungs: Clear to auscultation, Normal air movement Cardiovascular: Regular rate, Normal S1, Normal S2, No murmurs, Gallops, Rubs Abdomen: Normal bowel sounds, Soft, No tenderness, No hepatospenomegaly Neuro: Cranial nerves 3-12 NL Psych/Mental Status: Mental status NL Medications Current Medications Medications Dose Ordered Sig/Vahid Route Start Time Stop Time Status Last Admin Dose Admin Sodium Chloride 1,000 ml @ 100 mls/hr Q10H IV 05/24/24 12:00 05/24/24 21:32 100 MLS/HR Acetaminophen/ Hydrocodone Bitart 1 tab Q4HP PRN PO 05/24/24 12:00 05/25/24 11:54 1 TAB Ondansetron HCl 4 mg Q4HP PRN IV 05/24/24 12:00 05/25/24 11:55 4 MG Docusate Sodium 100 mg BIDPRN PRN PO 05/24/24 12:00 Acetaminophen 650 mg Q6HP PRN PO 05/24/24 12:00 Morphine Sulfate 2 mg Q4HPRN PRN IV 05/24/24 12:00 05/24/24 22:19 2 MG Tamsulosin HCl 0.4 mg QPM PO 05/25/24 18:00 Ceftriaxone Sodium 50 ml @ 100 mls/hr DAILY@09 IV 05/25/24 09:00 05/25/24 09:53 100 MLS/HR Laboratory Results Laboratory Tests 05/25/24 05:10 Chemistry Test 05/25/24 05:10 Albumin 3.8 g/dL (3.2-4.8) Calcium Level 9.4 mg/dL (8.7-10.4) Total Protein 5.8 g/dL (5.7-8.2) LFT Test 05/25/24 05:10 Alanine Aminotransferase (ALT) 29 U/L (7-40) Alkaline Phosphatase 51 U/L (46-116) Aspartate Amino Transferase (AST) 21 U/L (13-40) Total Bilirubin 0.8 mg/dL (0.2-1.0) HgA1c, TSH Test 05/25/24 05:10 Hemoglobin A1c 4.9 % A1C (<5.7) Urinalysis Test 05/24/24 08:42 Urine Color Dark-brown (Yellow) Urine Clarity Ex.turbid (Clear) Urine pH 5.5 (5.0-9.0) Urine Specific [place] 1.026 (1.001-1.035) Urine Protein 2+ (Negative) H Urine Ketones Trace (Negative) Urine Blood 3+ /uL (Negative) H Urine Nitrite Negative (Negative) Urine Bilirubin Negative (Negative) Urine Urobilinogen Normal mg/dL (Negative) Urine Leukocyte Esterase 1+ /uL (Negative) Urine RBC 4921 /hpf (0 - 3) Urine Microscopic WBC 2 /HPF (0-3) Urine Squamous Epithelial Cells None seen /hpf (<5) Urine Bacteria None seen /hpf (None Seen) Urine Mucus Few (None Seen) Urine Glucose Normal mg/dL (Normal) Labs and/or images reviewed: Labs reviewed by me Assessment/Plan Assessment/Plan Hydroureteronephrosis, Hydronephrosis, UTI, Hyperglycemia, Continuing current management. Continuing with IV antibiotic Rocephin. Continuing with pain medication. Continuing to monitor the hypoglycemia. Per urologist patient will receive mannitol right now. Continuing with Flomax. Possible lithotripsy if kidney stone is not pass. This medical document was created using an electronic medical record system with [employer] direct computerized dictation system. Although this document has been carefully reviewed, there may still be some phonetic and typographical errors. These areas are purely typographical due to imperfections of the software programs, and do not reflect any compromise in the patient's medical care. Plan discussed with: Patient Date of Service: May 25, 2024 Billing Provider: ELMER SÁNCHEZ MD Common Visit Codes: 83708-[id number] INP/OBS CARE(HIGH) ELMER SÁNCHEZ MD May 25, 2024 12:45
[2024-05-25] MEDS: hydrALAZINE HCL 20 MG/ML VL IV PRN (17:21)
[2024-05-25] MEDS: TAMSULOSIN HYDROCHLORIDE 0.4 MG CAP PO SCH (18:12)
[2024-05-25 19:21] LABS: Chloride 102 mmol/L (98-107)
[2024-05-25 19:22] LABS: Anion Gap 8 (5-15); Calcium 9.4 mg/dL (8.7-10.4); Carbon Dioxide 21 mmol/L (20-31)
[2024-05-25 19:27] LABS: BUN/Creatinine Ratio 6.4 (10.0-20.0); Blood Urea Nitrogen 13 mg/dL (9-23); Glucose 104 mg/dL (74-106)
[2024-05-25 19:35] LABS: Sodium 131 mmol/L (136-145)
[2024-05-26 00:47] VITALS: BP 143/89; PULSE 112; RESP 18; TEMP 98.2; O2SAT 94
[2024-05-26 05:00] VITALS: BP 144/87; PULSE 120; RESP 20; TEMP 98.3; O2SAT 94
[2024-05-26 08:00] VITALS: PULSE 122; RESP 18; O2SAT 94
[2024-05-26 09:00] VITALS: BP 135/87; PULSE 122; RESP 18; TEMP 98.7; O2SAT 94
--- NOTE | 2024-05-26 09:51 | DVH ---
INDICATION: Bilateral hydronephrosis TECHNIQUE: Multiple real-time sonographic images of the kidneys and bladder were obtained. COMPARISON: US KIDNEY on DOS: 05/25/24 FINDINGS: The right kidney measures 10.6 cm in length, which is normal in size. There is increased ec hogenicity of the right kidney. No hydronephrosis. There is a right renal stone measuring up to 0.3 c m. The left kidney measures 10.5 cm in length, which is normal in size. There is increased echogenicity of the left kidney. No hydronephrosis. There is a left renal stone measuring 0.6 cm. No large intraluminal masses are seen in the bladder. Right ureteral jet is visualized. Left uretera l jet is not visualized at this time. IMPRESSION: Bilateral nonobstructive renal calcifications measuring up to 0.3 cm in the right kidney and 0.6 cm i n the left kidney. No definite hydronephrosis.
--- NOTE | 2024-05-26 11:17 | DVHPN2 ---
Eyes: No Pain, No Vision change, No Conjunctivae inflammation, No Eyelid inflammation, No Other, No Redness ENT: No Ear pain, No Ear discharge, No Nose pain, No Nose discharge, No Nose congestion, No Mouth pain, No Mouth swelling, No Throat pain, No Throat swelling, No Other Cardiovascular: No Chest Pain, No Palpitations, No Orthopnea, No Paroxysmal Noc. Dyspnea, No Edema, No Lt Headedness, No Other Respiratory: No Cough, No Dry, No Shortness of breath, No SOB with excertion, No Wheezing, No Hemoptysis, No Pleuritic Pain, No Sputum, No Other Gastrointestinal: Nausea, Vomiting, Abdominal Pain; No Diarrhea, No Constipation, No Melena, No Hematochezia, No Other Genitourinary: Dysuria, Frequency; No Incontinence; Hematuria, Retention; No Other Musculoskeletal: No other, No neck pain, No shoulder pain, No arm pain, No back pain, No hand pain, No leg pain, No foot pain Skin: No Rash, No Lesions, No Jaundice, No Bruising, No Other Objective Vitals Vital Signs Date Time Temp Pulse Resp B/P (MAP) Pulse Ox O2 Delivery O2 Flow Rate FiO2 05/26/24 09:00 98.7 122 18 135/87 (103) 94 98.7 05/26/24 08:00 Room Air* 0 21 Intake/Output Intake and Output 05/26/24 07:00 Intake Total 930 ml Output Total 1300 ml Balance -370 ml Intake Oral 880 ml IV Total 50 ml Output Urine Total 1300 ml # Voids 7 Medications Current Medications Medications Dose Ordered Sig/Vahid Route Start Time Stop Time Status Last Admin Dose Admin Sodium Chloride 1,000 ml @ 100 mls/hr Q10H IV 05/24/24 12:00 05/25/24 18:00 100 MLS/HR Acetaminophen/ Hydrocodone Bitart 1 tab Q4HP PRN PO 05/24/24 12:00 05/25/24 18:12 1 TAB Ondansetron HCl 4 mg Q4HP PRN IV 05/24/24 12:00 05/25/24 20:14 4 MG Docusate Sodium 100 mg BIDPRN PRN PO 05/24/24 12:00 Acetaminophen 650 mg Q6HP PRN PO 05/24/24 12:00 Morphine Sulfate 2 mg Q4HPRN PRN IV 05/24/24 12:00 05/24/24 22:19 2 MG Tamsulosin HCl 0.4 mg QPM PO 05/25/24 18:00 05/25/24 18:12 0.4 MG Ceftriaxone Sodium 50 ml @ 100 mls/hr DAILY@09 IV 05/25/24 09:00 05/26/24 08:09 100 MLS/HR Hydralazine HCl 10 mg Q6HP PRN IV 05/25/24 17:00 05/25/24 17:21 10 MG Laboratory Results Laboratory Tests 05/25/24 05:10 05/25/24 18:52 Chemistry Test 05/25/24 18:52 Calcium Level 9.4 mg/dL (8.7-10.4) Urinalysis Test 05/24/24 08:42 Urine Color Dark-brown (Yellow) Urine Clarity Ex.turbid (Clear) Urine pH 5.5 (5.0-9.0) Urine Specific [place] 1.026 (1.001-1.035) Urine Protein 2+ (Negative) H Urine Ketones Trace (Negative) Urine Blood 3+ /uL (Negative) H Urine Nitrite Negative (Negative) Urine Bilirubin Negative (Negative) Urine Urobilinogen Normal mg/dL (Negative) Urine Leukocyte Esterase 1+ /uL (Negative) Urine RBC 4921 /hpf (0 - 3) Urine Microscopic WBC 2 /HPF (0-3) Urine Squamous Epithelial Cells None seen /hpf (<5) Urine Bacteria None seen /hpf (None Seen) Urine Mucus Few (None Seen) Urine Glucose Normal mg/dL (Normal) Microbiology Microbiology Date/Time Source Procedure Growth Status 05/24/24 08:42 Voided Urine Urine Culture - Final Complete Assessment/Plan My Orders Orders - ELMER SÁNCHEZ MD Procedure Category Date Status Time Hydralazine Injection PHA 05/25/24 In Process (Apresoline Inject 17:00 ELMER SÁNCHEZ MD May 26, 2024 11:17
--- NOTE | 2024-05-26 13:01 | DVHPN2 ---
Progress Note - Dictate Date Seen: May 26, 2024 Has the PT tested + for MRSA If YES, has PT been informed?: No Medical Necessity Reason Pt with a Central, PICC or Fol: No Medical Necessity Reason Left proximal ureteral stone Right distal ureteral stone, passed. Subjective Patient states he is feeling much better on the right side and he is able to urinate. He even feels like he may have passed the stone on the right side. vital signs Vital Sign Date Time Temp Pulse Resp B/P (MAP) Pulse Ox O2 Delivery O2 Flow Rate FiO2 05/26/24 09:00 98.7 122 18 135/87 (103) 94 98.7 05/26/24 08:00 Room Air* 0 21 Total Intake and Output 05/25/24 05/25/24 05/26/24 15:00 23:00 07:00 Intake Total 50 ml 880 ml 0 ml Output Total 1300 ml Balance 50 ml 880 ml -1300 ml medications Current Medications Medications Dose Ordered Sig/Vahid Route Start Time Stop Time Status Last Admin Dose Admin Sodium Chloride 1,000 ml @ 100 mls/hr Q10H IV 05/24/24 12:00 05/25/24 18:00 100 MLS/HR Acetaminophen/ Hydrocodone Bitart 1 tab Q4HP PRN PO 05/24/24 12:00 05/25/24 18:12 1 TAB Ondansetron HCl 4 mg Q4HP PRN IV 05/24/24 12:00 05/25/24 20:14 4 MG Docusate Sodium 100 mg BIDPRN PRN PO 05/24/24 12:00 Acetaminophen 650 mg Q6HP PRN PO 05/24/24 12:00 Morphine Sulfate 2 mg Q4HPRN PRN IV 05/24/24 12:00 05/24/24 22:19 2 MG Tamsulosin HCl 0.4 mg QPM PO 05/25/24 18:00 05/25/24 18:12 0.4 MG Ceftriaxone Sodium 50 ml @ 100 mls/hr DAILY@09 IV 05/25/24 09:00 05/26/24 08:09 100 MLS/HR Hydralazine HCl 10 mg Q6HP PRN IV 05/25/24 17:00 05/25/24 17:21 10 MG objective PATIENT: KENY BAUTISTA ACCT: [id number] UNIT: [id number] : 1965 LOC: [facility] ROOM / BED: 0270 / A AGE / SEX: 58 / M ADM STATUS: ADM IN SERVICE 0 ORDERING PHYSICIAN: KARISSA CRUZ MD PROCEDURE(s): KIDUS - KIDNEY REASON: Bilateral hydronephrosis ORDER NUMBER(s): [id number], ACCESSION NUMBER(s): [id number] INDICATION: Bilateral hydronephrosis TECHNIQUE: Multiple real-time sonographic images of the kidneys and bladder were obtained. COMPARISON: US KIDNEY on DOS: 05/25/24 FINDINGS: The right kidney measures 10.6 cm in length, which is normal in size. There is increased echogenicity of the right kidney. No hydronephrosis. There is a right renal stone measuring up to 0.3 cm. The left kidney measures 10.5 cm in length, which is normal in size. There is increased echogenicity of the left kidney. No hydronephrosis. There is a left renal stone measuring 0.6 cm. No large intraluminal masses are seen in the bladder. Right ureteral jet is visualized. Left ureteral jet is not visualized at this time. IMPRESSION: Bilateral nonobstructive renal calcifications measuring up to 0.3 cm in the right kidney and 0.6 cm in the left kidney. No definite hydronephrosis. ATED BY: EMMETT CHAMORRO MD DICTATED DATE/TIME: 05/26/24947 SIGNED BY: EMMETT CHAMORRO MD SIGNED DATE/TIME: 05/26/24947 CC: laboratory and microbiology Laboratory Tests 05/25/24 18:52 05/25/24 05:10 Test 05/25/24 18:52 Range/Units Serum Glucose 104 74-106 mg/dL Problem List Bilateral nephrolithiasis Left proximal ureteral stone with mild hydronephrosis Assessment/Plan Continue with the expulsive measures Outpatient follow up in clinic Plan discussed with: Patient, Other KARISSA CRUZ MD May 26, 2024 13:01
[2024-05-26] MEDS ORDERED: LEVO500T91 PO (13:09)
--- NOTE | 2024-05-26 13:09 | DVHDS2 ---
Discharge Summary Date of Admission May 24, 2024 at 11:57 Date of Discharge: May 26, 2024 Admitting Diagnosis Hydroureteronephrosis, Hydronephrosis, UTI, Hyperglycemia, Labs/Diagnostic Data: Laboratory Results Test 05/25/24 18:52 05/25/24 05:10 05/24/24 08:42 Sodium Level 131 mmol/L (136-145) Potassium Level 4.0 mmol/L (3.5-5.1) Chloride Level 102 mmol/L (98-107) Carbon Dioxide Level 21 mmol/L (20-31) Anion Gap 8 (5-15) Blood Urea Nitrogen 13 mg/dL (9-23) Creatinine 2.03 mg/dL (0.700-1.30) Glomerular Filtration Rate Calc 38 mL/min (>90) BUN/Creatinine Ratio 6.4 (10.0-20.0) Serum Glucose 104 mg/dL (74-106) Calcium Level 9.4 mg/dL (8.7-10.4) White Blood Count 8.3 10^3/uL (4.4-10.8) Red Blood Count 4.51 10^6/uL (4.5-5.90) Hemoglobin 15.8 g/dL (13.5-17.5) Hematocrit 46.1 % (41.0-53.0) Mean Corpuscular Volume 102.1 fL (80.0-100.0) Mean Corpuscular Hemoglobin 35.0 pg (28.0-32.0) Mean Corpuscular Hemoglobin Concent 34.3 g/dL (32.0-36.0) Red Cell Distribution Width 12.8 % (11.8-14.3) Platelet Count 188 10^3/uL (140-450) Mean Platelet Volume 7.4 fL (6.9-10.8) Neutrophils (%) (Auto) 71.9 % (37.0-80.0) Lymphocytes (%) (Auto) 16.5 % (10.0-50.0) Monocytes (%) (Auto) 11.1 % (0.0-12.0) Eosinophils (%) (Auto) 0.3 % (0.0-7.0) Basophils (%) (Auto) 0.2 % (0.0-2.0) Neutrophils # (Auto) 5.9 10 ^3/uL (1.6-8.6) Lymphocytes # (Auto) 1.4 10 ^3/uL (0.4-5.4) Monocytes # (Auto) 0.9 10 ^3/uL (0-1.3) Eosinophils # (Auto) 0 10 ^3/uL (0-0.8) Basophils # (Auto) 0 10 ^3/uL (0-0.2) Nucleated Red Blood Cells 0.0 % Hemoglobin A1c 4.9 % A1C (<5.7) Total Bilirubin 0.8 mg/dL (0.2-1.0) Aspartate Amino Transferase (AST) 21 U/L (13-40) Alanine Aminotransferase (ALT) 29 U/L (7-40) Alkaline Phosphatase 51 U/L (46-116) Total Protein 5.8 g/dL (5.7-8.2) Albumin 3.8 g/dL (3.2-4.8) Urine Color Dark-brown (Yellow) Urine Clarity Ex.turbid (Clear) Urine pH 5.5 (5.0-9.0) Urine Specific [place] 1.026 (1.001-1.035) Urine Protein 2+ (Negative) Urine Ketones Trace (Negative) Urine Blood 3+ /uL (Negative) Urine Nitrite Negative (Negative) Urine Bilirubin Negative (Negative) Urine Urobilinogen Normal mg/dL (Negative) Urine Leukocyte Esterase 1+ /uL (Negative) Urine RBC 4921 /hpf (0 - 3) Urine Microscopic WBC 2 /HPF (0-3) Urine Squamous Epithelial Cells None seen /hpf (<5) Urine Bacteria None seen /hpf (None Seen) Urine Mucus Few (None Seen) Urine Glucose Normal mg/dL (Normal) Other Laboratory Tests 05/25/24 18:52 05/25/24 05:10 Brief Hx & Hospital Course: This is a 58 years old male with no significant past medical history came to emergency department because of abdominal pain in the right lower quadrant. The patient's pain seem to improved for a couple day then the pain is worsened. So the patient come to emergency department for further evaluation. The patient had not see his doctor for a long time. The patient abdominal and pelvis CT showed: Minimally obstructing distal right ureteral calculus measuring up to 5 mm. Obstructing proximal left ureteral calculus measuring up to 3 mm associated with mild left hydronephrosis and hydroureter. Left lower pole renal calculus measuring up to 4 mm. Urology evaluation is recommended. The patient received IV fluid, pain medication. Urology see the patient recommend lithotripsy but at 1st urologist tried expulsive measures with manitol and flomax. The patient's pain improved. Dr. Whitehead, will see him as outpatient for possible lithotripsy. So I am going to discharge him home to the patient is seen IV Rocephin 1 g IV q.day for UTI in the hospital. Urine did not grow any bacteria however I will continuing to treat the patient with seven day of antibiotic Levaquin. Follow up with primary care physician 1-2 weeks. Follow up with Dr. Whitehead, urologist per schedule. Activity as tolerated. Diet per home diet. Recommend low protein low-salt diet .Recommended to drink plenty of water Physical exam: HEENT: Normocephalic atraumatic pupils equal react to light and accommodation. Extraocular muscles intact, conjunctiva pink, oropharynx moist, no thrush, no exudate. Lymphatic: No lymphadenopathy Cardiovascular exam: S1, S2 was heard. No murmurs, rubs, gallops Lung: Clear on auscultation bilaterally, no wheeze, rale, rhonchi. GI: Abdominal soft, nondistended, nontenderness, positive bowel sounds. Extremity: No crepitus, cyanosis, edema. Pedal pulses present bilateral. Full range of motion. Skin: Normal turgor, no rash. Psych: Alert, oriented x3. Neurology: No focal deficits, cranial nerve II to XII grossly intact. This medical document was created using an electronic medical record system with [employer] direct computerized dictation system. Although this document has been carefully reviewed, there may still be some phonetic and typographical errors. These areas are purely typographical due to imperfections of the software programs, and do not reflect any compromise in the patient's medical care. Condition at Discharge: Stable Final Diagnosis/Problems List Hydroureteronephrosis, Hydronephrosis, UTI, Hyperglycemia, Discharge Disposition: Home Discharge Statement: "Patient was advised to return to the ER or call 911 if any headaches, dizziness, shortness of breath, chest pain, abdominal pain, bleeding, fevers, or worsening of medical condition. Patient was counseled about treatment plan, medications, possible side effects, patientverbalized understanding. All questions were answered to the best of my ability. This discharge took greater then 30 minutes in planning, reviewing documentation, counseling the patient, and discussing with other team members." ASSESSMENT ASSESSMENT Assessment Date of Service: May 26, 2024 Billing Provider: ELMER SÁNCHEZ MD Common Visit Codes: 49874-PWB/OBS DISCH DAY >30min ELMER SÁNCHEZ MD May 26, 2024 13:09
[2024-05-26 14:05] VITALS: BP 132/86; PULSE 109; RESP 20; TEMP 98.1; O2SAT 95
== END 2024-05-26 14:25 | disposition home or self-care (01) | DRG 872 ==
LOC: ER 08:33 → OVERFLOW 11:57 → WEST WING 23:38
PROVIDERS: ADMIT Internal Medicine; ATTEND Internal Medicine
DX: A41.9 Sepsis, unspecified organism (principal); N13.6 Pyonephrosis; R73.9 Hyperglycemia, unspecified; Z87.891 Personal history of nicotine dependence
CPT/HCPCS: 36415; 74176; 76775; 80048; 80053; 81001; 83036; 85025; 87086; 96361; 96365; 96375; 99291; G0378; J1885; J2405